=== PATIENT | female | born 1995 ===

== ENCOUNTER → 2017-03-17 08:00 | Outpatient (CLI) | payer OTHER ==
[~2017-03-17 08:00] MED LIST: ATIVAN1 M1 PO; LITIUM PO; REMERON PO; RESTORI PO; SEROQUEL300 MG PO
== END | disposition home or self-care (01) ==
LOC: LAB 08:00 → CIR.AMB 03-23 05:25 → EDSTATUS 03-23 07:00 → CIR.AMB 03-23 10:05
DX: N84.0 Polyp of corpus uteri (principal); Z01.812 Encounter for preprocedural laboratory examination